=== PATIENT | female | born 2000 | race Caucasian/White ===

== ENCOUNTER 2024-12-17 08:26 | Outpatient (CLI) | payer BC, SELFPAY ==
--- OUTSIDE RECORDS SUMMARY | 2024-12-17 08:53 | XMS_ITS | Clinical Summary ---
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 Gender Identity Not on file Sexual Orientation Not on file Plan of Treatment Health Maintenance Due Date Last Done Comments Hepatitis C Virus (HCV) Screening 1999 TdaP Immunization 1999 Hepatitis B Immunization (1 of 3 - 19+ 3-dose series) 09/05/2018 Influenza Immunization (#1) 2024 SARS-COV-2 Immunization ( - season) 2024 Respiratory Syncytial Virus (RSV) Immunization (Adult) (1 - 1-dose 75+ series) 09/05/2074 Human Papillomavirus (HPV) Immunization Completed 06/05/2015, 10/03/2014, 09/25/2013 Meningococcal Immunization (ACWY) Completed 01/27/2016 Pneumococcal Immunization Combined Aged Out No longer eligible b ased on patient's age to complete this topic Rotavirus Immunization Aged Out No lo nger eligible based on patient's age to complete this topic
--- OUTSIDE RECORDS SUMMARY | 2024-12-17 08:53 | XMS_ITS | Clinical Summary ---
Author Organization [facility] Address [address] [place] [phone] Care Team Providers Care Brass Roller Name Role Phone Jessica Quezada NP Primary Care Provider [phone] Allergies No known active allergies Medications azithromycin (ZITHROMAX) 250 mg tablet 08/16/19 25 Active clindamycin (CLEOCIN T) 1 % gel Apply topically every morning 08/08/19 25 Active tretinoin (RETIN-A) 0.025 % cream APPLY DIRECTED TO FACE EVERY NIGHT AT BEDTIME 08/09/19 25 Active Ashlyna 0.15 mg-30 mcg (84)/10 mcg (7) tablets,dose pack,3 month Take 1 tablet by mouth daily 91 tablet 3 11/28/19 25 Active levonorgestrel & ethinyl estradiol (Ashlyna) 0.15 mg-30 mcg tablets,dose pack,3 month Take 1 tablet by mouth daily 91 tablet 3 10/05/19 25 025 Discontinued(Re order) levonorgestrel & ethinyl estradiol (Ashlyna) 0.15 mg-30 mcg tablets,dose pack,3 month Take 1 tablet by mouth daily 91 tablet 3 11/23/19 25 025 Discontinued(Re order) Ashlyna 0.15 mg-30 mcg (84)/10 mcg (7) tablets,dose pack,3 month Take 1 tablet by mouth daily 91 tablet 3 11/27/19 25 025 Discontinued Active Problems No known active problems Encounters Date Type Department Care Team Description 11/27/2024 Telephone [facility] Obstetrical Gynecology [address] [facility] [address] [place] [address] [phone] Kristy Suh MD 11/27/2024 Orders Only [facility] Obstetrical Gynecology [address] [facility] [address] [place] [address] [phone] Kristy Suh MD 11/26/2024 Orders Only [facility] Obstetrical Gynecology [address] [facility] [address] [place] [phone] Kristy Suh MD 11/26/2024 Telephone [facility] Obstetrical Gynecology [address] [facility] [address] [place] [phone] Kristy Suh MD 11/22/2024 Telephone [facility] Obstetrical Gynecology [address] [place] [address] [place] [phone] Kristy Suh MD pharmacy change (Pharmacy change and BC sent to new pharmacy) 11/19/2024 Telephone [facility] Obstetrical Gynecology [facility] [facility] [address] [place] [phone] Keshia Copeland MA OCP refill fax new pharmacy per insurance 10/10/2024 Results Follow-Up [facility] Obstetrical Gynecology [address] [place] [address] [phone] Kristy Suh MD Trichomonas vaginalis PCR Vaginal, N. gonorrhoeae/C. trachomatis Amplification Vaginal 10/04/2024 4:59 PM CDT - 10/04/2024 11:59 PM CDT Hospital Encounter [facility] [address] [place] [address] Routine screening for STI (sexually transmitted infection) Discharge Disposition: Discharge to home or self care 10/04/2024 3:00 PM CDT Office Visit [facility] Obstetrical Gynecology [address] [place] [phone] Kristy Suh MD Well woman exam with routine gynecological exam (Primary Dx); Routine screening for STI (sexually transmitted infection) from Last 3 Months Surgical History Surgery Date Site/Laterality Comments NO PAST SURGERIES Medical History Medical History Date Comments No known health problems Family History Medical History Relation Name Comments No Known Problems Father No Known Problems Maternal Grandmother No Known Problems Mother Breast cancer Neg Hx Colon cancer Neg Hx Ovarian cancer Neg Hx Uterine cancer Neg Hx Relation Name Status Comments Father Alive Maternal Grandmother Alive Mother Alive Social History Tobacco Use Types Packs/Day Years Used Date Smoking Tobacco: Never Tobacco Cessation:Counseling Given: Not Answered Alcohol Use Standard Drinks/Week Comments Yes 0 (1 standard drink = 0.6 oz pur e alcohol) Comments No Sex and Gender Information Value Date Recorded Sex Assigned at Not on file 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 Gender Identity Not on file Sexual Orientation Not on file Obstetrics History Para Term AB IAB SAB Ectopic Multiple Livin g Live Births 0 0 0 0 0 0 0 0 0 0 0 Comments 12/0/0 Last Filed Vital Signs Vital Sign Reading Time Taken Comments Blood Pressure 110/70 10/04/2024 3:02 PM CDT Pulse - - Temperature - - Respiratory Rate - - Oxygen Saturation - - Inhaled Oxygen Concentration - - Weight 69.4 kg (153 lb) 10/04/2024 3:02 PM CDT Height 162.6 cm (5' 4) 10/04/2024 3:02 PM CDT Body Mass Index 26.26 10/04/2024 3:02 PM CDT Plan of Treatment Health Maintenance Due Date Last Done Comments Depression Screening 1999 Hepatitis C Screening 1999 DTaP/Tdap/Td Vaccine (7 - Td or Tdap) 10/16/2020 10/16/2010, 10/12/2004, 12/26/2000, Additional history exists Cervical Cancer Screening 06/14/2024 06/15/2023 Influenza Vaccine (#1) 2024 01/05/2018 Regular Well Visit/Exam 18-64 10/04/2025 10/04/2024, 06/15/2023, 04/28/2022, Additional history exists Hepatitis B Screening Completed 12/26/2000 , 01/05/2000, 1999, Additional history exists Varicella Vaccines Completed 09/17/2009, 09/26/2000 HPV Vaccines Completed 06/05/2015, 09/12, 09/25/2013 Pneumococcal vaccine <65 Aged Out No longer eligible based on patient's age to complete this topic Procedures Procedure Name Priority Date/Time Associated Diagnosis Comments N. GONORRHOEAE/C. TRACHOMATIS AMPLIFICATION Routine 10/04/2024 3:38 PM CDT Routine screening for STI (sexually transmitted infection) TRICHOMONAS VAGINALIS PCR Routine 10/04/2024 3:38 PM CDT Routine screening for STI (sexually transmitted infection) PAP WITH REFLEX TO HIGH RISK HPV Routine 06/15/2023 11:46 AM CDT Well woman exam with routine gynecological exam from Last 3 Months or Most Recently Relevant to Health Maintenance Results * N. gonorrhoeae/C. trachomatis Amplification Vaginal (10/04/2024 3:38 PM CDT) C. trachomatis Not Detected [facility] Comment:Testing performed by : [facility], [address] [place] [address]., [id number] N. gonorrhoeae Not Detected [facility] Comment: Interpretive Data This assay detects Chlamydia trachomatis and Neisseria gonorrhoeae by nucleic acid amplification testing (NAAT). This assay has been cleared by the [place] Food and Drug administration. The performance characteristics of this test have been verified by the [facility] Molecular Infectious Disease laboratory. The performance characteristics of this test have not been evaluated in individuals less than 14 years of age. Current Interpretive Data was last revised on 2023. Testing performed by: [facility], [address] [place] [address]., [id number] Vaginal (None) 10/04/2024 3: 38 PM CDT 10/05/2024 3:51 AM CDT us Kristy Suh MD LAB MICROBIOLOGY - GENERA L ORDERABLES Final Result [facility] [address] [facility] Department [place] [address] [facility] * Trichomonas vaginalis PCR Vaginal (10/04/2024 3:38 PM CDT) Trichomonas DNA Not Detected [facility] Comment: Interpretive Data This assay detects Trichomonas vaginalis by nucleic acid amplification testing (NAAT). This assay has been cleared by the [place] Food and Drug administration. The performance characteristics of this test have been verified by the [facility] Molecular Infectious Disease laboratory. The performance of this test has not been evaluated in individuals less than 18 years of age. Current Interpretive Data was last revised on 2023. Testing performed by: [facility], [address] [place]., [address] Vaginal 10/04/2024 3:38 PM CDT 10/05/2024 3:51 AM CDT Kristy Suh MD LAB MICROBIOLOGY - GENERA L ORDERABLES Final Result [facility] [address] [place] [address] [facility] * Pap with reflex to High Risk HPV and Genotyping (Cytology Component) (06/15/2023 11:46 AM CDT) Thin prep (Pap test) 06/15/2023 11:46 AM CDT 06/15/2023 4:06 PM CDT Narrative PATHOLOGY [facility] - 06/21/2023 1:37 PM CDT EPIC results best viewed via link to PDF [facility] Elsie King Laboratory of Surgical Pathology [place] [address] Note to Patients: This report may contain a detailed description of human tissue sent by a health care provider to the laboratory for pathologic evaluation. The content of this report is essential for diagnosis and may provide important critical findings. This information may be unfamiliar to patients to review without a medical professional present. It is advised that the patient review this report in the presence of a health care provider who can answer questions and explain the details. CYTOPATHOLOGY REPORT FINAL Patient Name: KELLY TANNER Gender: F : 2000 (Age: 22) Address: [address] [place], [place] [address] [phone] Hospital #: [id number] Service: UNKNOWN Location: Patient Type: B SPECIMEN Taken: 06/15/2023 Received: 06/15/2023 Accessioned: 06/15/2023 Reported: 06/21/2023 Physician(s): Kristy Suh M.D. FINAL INTERPRETATION SOURCE OF SPECIMEN Liquid based Thin Prep pap with Reflex HPV: STATEMENT OF ADEQUACY - Satisfactory for evaluation - Endocervical cells/transformation zone sample present GENERAL CATEGORIZATION: - Negative for squamous intraepithelial lesion or malignancy cassie/06/21/2023 13:37 KENNEDY Perez(ASCP) Report Electronically Reviewed and Signed Out By KENNEDY Perez(ASCP) 06/21/2023 13:37:07 Cervicovaginal Cytology (Pap Test) Disclaimer: The Pap test is a screening test used to detect cervical cancer and its precursors; it is not a diagnostic procedure. False negative and false positive results do occur. Pap test results should be interpreted in the context of pertinent clinical information and biopsy results as indicated. [facility] Clinical Laboratory Improvement Amendments (CLIA) mandate that cytologic and histologic results be correlated for laboratory quality review specialist & improvement standards. FOR ALL HIGH-GRADE CASES we request submission of follow-up histological material and/or reports that have not been previously provided so that we may fulfill said required standards. Gross Description A. Liquid based Thin Prep pap with Reflex HPV: Cervical/vaginal - Screening ThinPrep Clinical Diagnosis and History Last Menstrual Period: 05/15/23 The patient is a 22 year old woman with screening. Report Images and scanned documents, if included only viewable in PDF version The performance characteristics of some immunohistochemical stains, in-situ hybridization and fluorescence in-situ hybridization tests and immunophenotyping by flow cytometry cited in this report (if any) were determined by the Surgical Pathology Department at [facility] as part of an ongoing director software quality assurance program and in compliance with federally mandated regulations drawn from the Clinical Laboratory Improvement Act of 1988 (CLIA '88). Some of these tests rely on the use of analyte specific reagents and are subject to specific labeling requirements by the [place] Food and Drug Administration. Such diagnostic tests may only be performed in a facility that is certified by the Department of Health and Human Services as a high complexity laboratory under CLIA '88. The FDA has determined that such clearance or approval is not necessary. This test is used for clinical purposes. It should not be regarded as investigational or for research. Nevertheless, federal rules concerning the medical use of analyte specific reagents require that the following disclaimer be attached to the report: This test was developed and its performance characteristics determined by the Surgical Pathology Department of [facility]. It has not been cleared or approved by the [place]. S. Food and Drug Administration. Kristy Suh MD LAB CYTOLOGY ORDERABLES F inal Result PATHOLOGY [facility] from Last 3 Months or Most Recently Relevant to Health Maintenance Insurance [employer] ACCESS CHOICE Care Teams Brass Roller Relationship Specialty Start Date End Date Jessica Quezada NP [address] [place] [id number] PCP - General Nurse Practitioner 10/04/24
--- OUTSIDE RECORDS SUMMARY | 2024-12-17 08:53 | XMS_ITS | Clinical Summary ---
Author Organization [facility] Address [address] [place] [address] Care Team Providers Care Commutator Repairer Name Role Phone Unavailable Primary Care Provider Unavailabl e Source Comments [facility],non-owned Affiliates and Associated Physician Practices is amultiple site organization consisting of ambulatory clinics and hospital sitesin [place], [place], [place] and [place]. This disclosure is being madepursuant to the Care Everywhere program and may not contain all information available regarding this patient. Last updated 17.[facility] Allergies No known active allergies Medications * Be aware that medications may not be up to date on this document. Alwaysverify current medications with the patient. drospirenone-eth inyl estradiol (INESSA) 3-0.02 MG tablet Take 1 tablet by mouth once daily 1 packet 5 03/15/2017 Active Active Problems Problem Noted Date Diagnosed Date GERD (gastroesophageal reflux disease) 0 Overview (02/10/2010): 02/10/10 otc prilosec Well child visit 09/17/2009 Overview (11/04/2016): 9 yo 09/17/09 10 yo 10/16/10 12 yo 09/20/12 13 yo 09/25/13 14 yo 10/03/14 16 yr 11/04/16 Screening for condition 09/12/2009 Overview (12/12/2014): Blood type - A positive Hgb 15.3 (09/25/2013) Resolved Problems Problem Noted Date Diagnosed Date Resolved Date Viral illness 06/12/2013 06/07/2016 Overview (06/14/2013): 06/12/13 Acute URI 12/10/2011 06/07/2016 Heel pain 07/29/2011 06/07/2016 Overview (07/29/2011): 07/28/11 xrays ordered Viral syndrome 07/29/2011 06/07/2016 Overview (07/29/2011): 07/28/11 Streptococcal pharyngitis 09/08/2009 Overview (01/03/2017): 09/08/09 RSS positive - cefzil 05/18/11 Amox (telephone dx - sibling with strep and pt with sxs) 05/05/12 Amox 05/29/12 Cefzil 12/21/16 amox 01/03/17 Cefzil Acute sinusitis 06/17/2009 07/24/2014 Overview (04/20/2017): 06/17/09 - Zithromax - Changed to Augmentin ES 06/18/09 due to vomiting 11/03/11 - Zithromax 12/11/12 - zithromax 01/17/14 - ceftin - changed to zithromax (ceftin not covered by insurance) 01/29/14 - cefzil 06/07/16 - zithromax 06/22/16 - omncief 01/25/17 - zithromax 04/20/17 - omnicef Otitis media, acute 05/13/2009 06/08/19 17 Overview (12/11/2012): 05/13/09 bilateral (cefzil) 03/22/11 right (amox) 12/11/12 bilateral (zithromax) Acute pharyngitis 05/13/2009 06/07/2016 Overview (12/10/2011): 05/13/09 12/08/11 Immunizations Immunization Administration Dates Next Due DTaP VACCINE IM (6wk-6yrs) 10/12/2004,,03/29/2000,01/04,1999 HEP A PEDS 2 DOSE 10/16/2010,09/17/2009 HEP B VACCINE, PED/ADOL 12/26/2000,01/04,1999,09/06 HIB BOOSTER 12/26/2000,01/05/2000,1999 Human Papilloma Virus Claudette valent Vaccine 06/05/2015,10/03/2014,09/25/2013 MENINGOCOCCAL ACWY (MCV4P) VAC IM 01/27/2016,07/2010 MMR 10/12/2004,09/26/2000 PNEUMOCOCCAL CONJ, PEDS 03/27/2001,09/26/2000, POLIO IPV 11/08/2003, 1,01/05/2000,11/05 PPD 11/08/2003 TDAP (7yrs+) 10/16/2010 VARICELLA 09/17/2009,09/26/2000 Family History Medical History Relation Name Comments Cancer Maternal Grandfather Non Hod gkins outside lung Relation Name Status Comments Maternal Grandfather Social History Tobacco Use Types Packs/Day Years Used Date Smoking Tobacco: Never Smokeless Tobacco: Never Alcohol Use Standard Drinks/Week Comments No 0 (1 standard drink = 0.6 oz pur e alcohol) Comments No Sex and Gender Information Value Date Recorded Sex Assigned at Not on file Legal Sex Female 6:52 AM ADMINISTRATIVE SERVICES OFFICER Gender Identity Not on file Sexual Orientation Not on file Occupation Industry Job Start Date Job End Date [employer] Not on file Not on file Not on file [employer] Not on file Not on file Not on file Last Filed Vital Signs Vital Sign Reading Time Taken Comments Blood Pressure 120/76 11/04/2016 3:55 PM CDT Pulse - - Temperature 36.4 C (97.6 F) 05/23/2017 2:20 PM CDT Respiratory Rate - - Oxygen Saturation 98% 12/08/2011 4:01 PM CDT Inhaled Oxygen Concentration - - Weight 57 kg (125 lb 9.6 oz) 05/23/2017 2:20 PM CDT Height 166.4 cm (5' 5.5) 01/25/2017 3:45 PM ADMINISTRATIVE SERVICES OFFICER Body Mass Index - - Plan of Treatment Health Maintenance Due Date Last Done Comments HIV SCREENING 09/05/2014 CHLAMYDIA/GONORRHEA SCREENING 2015 HEPATITIS C SCREENING 09/01/2017 DTAP/TDAP/TD VACCINES (7 - Td or Tdap) 10/16/2020 10/16/2010, 10/12/2004, 12/26/2000, Additional history exists DEPRESSION SCREENING 03/14/2024 COVID-19 VACCINE (1 - season) 2024 INFLUENZA VACCINE (#1) 2024 ZOSTER VACCINE (1 of 2) 09/05/2049 HEPATITIS B VACCINE Completed 12/26/2000, 01/05/2000, 1999, Additional history exists HIB VACCINE Completed 12/26/2000, 12/13, 1999 PNEUMOCOCCAL VACCINE Completed 03/27/2001, 09/26/2000, 06/07/2000 HPV VACCINE Completed 06/05/2015, 09/12, 09/25/2013 MENINGOCOCCAL GROUPS A/C/Y/W VACCINE Completed 01/27/2016, 10/16/2010 MENINGOCOCCAL (Group B) VACCINE SHARED DECISION-MAKING Aged Out No longer eligible based on patient's age to complete this topic Goals Goal Patient Goal Type Associated Problems Recent Progress Patient-Stated? Author Use safety retraint in car Lifestyle On track( 017 3:50 PM CDT) No Gemma Christianson MA Insurance [facility] [place] [address] [place] [address]
[2024-12-17 18:31] LABS: Hematocrit 45.6 % (37.0-47.0); Hemoglobin 14.7 g/dL (12.0-15.0); Mean Corpuscular HGB Conc 32.2 g/dl (32-36); Mean Corpuscular Hemoglobin 29.4 pg (26-34); Mean Corpuscular Volume 91.2 fl (80-100); Platelet Count Result 279 k/mm3 (150-375); Red Blood Count 5.00 M/mm3 (4.2-5.4); White Blood Count 6.8 K/mm3 (4.5-10.0)
[2024-12-17 18:33] LABS: Alanine Aminotransferase 30 U/L (6-35); Albumin Level 4.7 g/dL (3.5-5.1); Alkaline Phosphatase 52 U/L (38-126); Anion Gap 10 mmol/L (4-12); Aspartate Amino Transferase 76 U/L (14-36); Bilirubin,Total 1.7 mg/dL (0.2-1.3); Blood Urea Nitrogen 12 mg/dL (7-17); Calcium 9.5 mg/dL (8.4-10.2); Carbon Dioxide 24 mmol/L (22-30); Chloride 103 mmol/L (98-107); Estimated Glomerular Filt Rate > 60; Glucose 82 mg/dL (65-110); Potassium 4.0 mmol/L (3.4-5.0); Sodium 137 mmol/L (137-145); Total Protein 8.1 g/dL (6.3-8.2)
[2024-12-17 18:36] LABS: Iron 123 ug/dL (37-170)
[2024-12-17 18:51] LABS: Percent Iron Saturation 24 % (20-50)
[2024-12-17 18:55] LABS: Free T4 Free Thyroxine 1.06 ng/dL (0.78-2.19)
[2024-12-17 19:10] LABS: Thyroid Stimulating Hormone 5.040 uIU/mL (0.465-4.680)
[2024-12-17 19:20] LABS: Ferritin 29.30 ng/mL (6.24-137)
[2024-12-17 19:29] LABS: Vitamin B12 732.0 pg/mL (239-931)
== END 2024-12-17 08:27 | disposition home or self-care (01) ==
PROVIDERS: PCP Nurse Practitioner Adult Health; Visit Provider Nurse Practitioner Adult Health
DX: R53.83 Other fatigue (principal)
CPT/HCPCS: 36415; 80053; 82306; 82607; 82728; 83540; 83550; 84439; 84443; 85027; 86376

== ENCOUNTER 2024-12-21 10:12 | Outpatient (CLI) | payer BC, SELFPAY ==
--- NOTE | ~2024-12-21 | US_ITS ---
EXAMINATION: US thyroid DATE: 12/21/2024 10:26 INDICATION: Other specified abnormal findings of blood chemistry. TECHNIQUE: Multiple ultrasound images of the thyroid were obtained. COMPARISON: None. FINDINGS: The right thyroid lobe measures 4.3 x 1.6 x 1.5 cm. The left thyroid lobe measures 4.1 x 1.2 x 1.4 cm. In the left thyroid lobe, there is a 12 mm solid, isoechoic, wider than tall nodule with ill-defined margin without echogenic foci (TI-RADS TR3). IMPRESSION: 1. Thyroid nodule, likely not clinically significant. No follow-up is needed. Reviewed, dictated and finalized at location E.
== END 2024-12-21 10:13 | disposition home or self-care (01) ==
PROVIDERS: PCP Nurse Practitioner Adult Health; Visit Provider Nurse Practitioner Adult Health
DX: R79.89 Other specified abnormal findings of blood chemistry (principal); E04.1 Nontoxic single thyroid nodule
CPT/HCPCS: 76536

== ENCOUNTER 2025-01-24 06:36 | Outpatient (CLI) | payer BC, SELFPAY ==
[2025-01-24 19:49] LABS: Thyroid Stimulating Hormone 3.920 uIU/mL (0.465-4.680)
== END 2025-01-24 06:37 | disposition home or self-care (01) ==
PROVIDERS: PCP Nurse Practitioner Adult Health; Visit Provider Nurse Practitioner Adult Health
DX: R79.89 Other specified abnormal findings of blood chemistry (principal)
CPT/HCPCS: 36415; 84443